=== PATIENT | male | born 1995 | race Two or more races ===

== ENCOUNTER 2019-03-25 17:31 | Emergency (ER) | payer OTHER ==
[~2019-03-25] VITALS: Ht 180.3 cm; Wt 101.3 kg
[2019-03-25] MEDS ORDERED: b/p med (17:38)
[2019-03-25] MEDS ORDERED: methylPREDNISolone INJ 125 MG/2 ML VIAL (J2930) IV ONE (18:15)
[2019-03-25] MEDS ORDERED: IPRATROPIUM 0.5MG/ALBUTEROL 2.5MG INH SOL UD 3ML (DUONEB)(J7620) NEB ONE (18:15)
[2019-03-25 18:37] LABS: BASO # 0.1 10^3/uL (0.0-0.2); BASO % 0.9 % (0.0-1.0); EOS # 1.5 10^3/uL (0.0-0.5); EOS % 10.5 % (0.0-3.0); HEMATOCRIT 50.2 % (42.0-52.0); HEMOGLOBIN 16.1 g/dl (13.5-17.5); LYMPH # 2.6 10^3/uL (1.5-5.0); LYMPH % 18.6 % (24.0-44.0); MEAN CORPUSCULAR HEMOGLOBIN 27.9 pg (27.0-33.0); MEAN CORPUSCULAR HGB CONC 32.1 g/dl (32.0-36.5); MEAN CORPUSCULAR VOLUME 86.9 fl (80.0-96.0); MONO # 1.2 10^3/uL (0.0-0.8); MONO % 8.3 % (0.0-5.0); NEUTROPHILS # 8.6 10^3/uL (1.5-8.5); NEUTROPHILS % 61.3 % (36.0-66.0); PLATELET COUNT, AUTOMATED 343 10^3/uL (150-450); RED BLOOD COUNT 5.78 10^6/uL (4.30-6.10)
--- NOTE | 2019-03-25 18:58 | REP ---
Two-view chest: 03/25/2019. Indication: Dyspnea. Comparison: None. Findings: The lungs are clear. There is no pleural effusion or pneumothorax. Cardiomediastinal silhouette is unremarkable. Impression: Clear lungs. Electronically Signed by Chon Simon DO 03/25/2019 06:50 P
[2019-03-25 19:00] LABS: BLOOD UREA NITROGEN 18 MG/DL (7-18); CALCIUM LEVEL 9.5 MG/DL (8.5-10.1); CARBON DIOXIDE LEVEL 30 MEQ/L (21-32); CHLORIDE LEVEL 103 MEQ/L (98-107); CREATININE FOR GFR 1.23 MG/DL (0.70-1.30); GLOMERULAR FILTRATION RATE > 60.0 (>60); GLUCOSE, FASTING 91 MG/DL (70-100); POTASSIUM SERUM 3.8 MEQ/L (3.5-5.1); SODIUM LEVEL 140 MEQ/L (136-145)
[2019-03-25 19:19] LABS: INFLUENZA A AMPLIFICATION NEGATIVE (NEGATIVE); INFLUENZA B AMPLIFICATION NEGATIVE (NEGATIVE)
[2019-03-25 19:43] VITALS: BP 160/77
[2019-03-25] MEDS ORDERED: PRED20TA PO (19:54)
[2019-03-25] MEDS ORDERED: ALBUTEROL 90 MCG/ACT 8GM HFA INHALER INH PRN (20:00)
--- NOTE | 2019-03-26 06:24 | ECGEPIP ---
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
== END 2019-03-25 20:59 | disposition home or self-care (01) ==
LOC: M ED 17:31
DX: J45.901 Unspecified asthma with (acute) exacerbation (principal); I10 Essential (primary) hypertension; R94.31 Abnormal electrocardiogram [ECG] [EKG]; Z88.0 Allergy status to penicillin
CPT/HCPCS: 71046; 80048; 85025; 87502; 87880; 93005; 94640; 96374; 99284; J2930

== ENCOUNTER → 2019-05-29 | Outpatient (CLI) | payer OTHER ==
[~2019-05-29] MED LIST: PRED20TA PO; b/p med
--- NOTE | 2019-05-29 15:00 | PFTRPT ---
Site: [facility], [address] [place] [address], [id number] ID: [id number] Name: ZURI CONWAY Visit Date: 05/29/2019 Second ID: [id number] Referring Doctor: Tony Irizarry PA-C Reviewing Doctor: Martin Grimm MD Automatic Operator: Nancy Medina Age: 24 : 1995 Sex: Male Race: Black Height: 71.00 Inches Weight: 220.00 Lbs BSA: 2.20 Order IDs: [id number] Requested Test(s): <RESP-PFT.DLCO> Diagnosis: SHORTNESS OF BREATH test meet the ATS standards for acceptability and repeatability. Pt was given four puffs of albuterol for postbronchodilator. Review Status: Not Reviewed Pre-Bronch Post-Bronch Pred Actual %Pred Actual %Chng SPIROMETRY FVC (L) 4.80 4.09 85 4.79 17 FEV1 (L) 4.05 1.79 44 2.56 43 FEV1/FVC (%) 85 44 51 53 22 FEF 25% (L/sec) 8.94 1.99 22 3.03 52 FEF 50% (L/sec) 6.07 0.83 13 1.97 138 FEF 75% (L/sec) 2.36 0.38 15 0.95 153 FEF 25-75% (L/sec) 4.48 0.64 14 1.67 161 FEF Max (L/sec) 10.09 2.59 25 4.91 89 FIVC (L) 2.58 4.81 86 FIF 50% (L/sec) 5.63 2.21 39 3.78 71 FIF Max (L/sec) 2.43 4.03 66 MVV (L/min) 188 45 23 Expiratory Time (sec) 12.21 12.15 Back Extrap Vol (L) 0.07 0.08 8 Time To FEFmax (sec) 0.180 0.097 -45 LUNG VOLUMES SVC (L) 5.50 4.90 89 IC (L) 3.63 3.66 100 ERV (L) 1.87 1.24 66 TGV (L) 3.45 4.24 123 RV (Pleth) (L) 1.58 3.00 189 TLC (Pleth) (L) 7.08 7.90 111 RV/TLC (Pleth) (%) 22 38 172 DIFFUSION DLCOunc (ml/min/mmHg) 36.83 31.06 84 DLCOcor (ml/min/mmHg) 36.83 31.14 84 DL/VA (ml/min/mmHg/L) 5.20 4.94 94 VA (L) 7.08 6.31 89 BHT (sec) 10.29 IVC (L) 4.75 TLC (SB) (L) 6.46 AIRWAYS RESISTANCE Raw (cmH2O/L/s) 1.45 5.46 376 Gaw (L/s/cmH2O) 1.03 0.19 18 sRaw (cmH2O*s) 4.76 20.55 431 sGaw (1/cmH2O*s) 0.20 0.05 26 BLOOD GASES Hgb (gm/dL) 14.5
== END ==
LOC: M CARPUL 14:04
PROVIDERS: ATTEND Physician Assistant
DX: J45.909 Unspecified asthma, uncomplicated (principal)

== ENCOUNTER 2019-07-22 10:18 | Emergency (ER) | payer OTHER ==
[~2019-07-22] VITALS: Ht 180.3 cm; Wt 97.7 kg
[2019-07-22] MEDS ORDERED: PROAAER10 INH (10:30)
[2019-07-22 11:22] LABS: HEMATOCRIT 46.5 % (42.0-52.0); HEMOGLOBIN 14.7 g/dl (13.5-17.5); MEAN CORPUSCULAR HEMOGLOBIN 27.1 pg (27.0-33.0); MEAN CORPUSCULAR HGB CONC 31.6 g/dl (32.0-36.5); MEAN CORPUSCULAR VOLUME 85.6 fl (80.0-96.0); PLATELET COUNT, AUTOMATED 288 10^3/uL (150-450); RED BLOOD COUNT 5.43 10^6/uL (4.30-6.10); WHITE BLOOD COUNT 8.7 10^3/uL (4.0-10.0)
[2019-07-22 11:34] LABS: AMPHETAMINES LEVEL URINE NEGATIVE (NEGATIVE); BARBITURATES URINE NEGATIVE (NEGATIVE); BENZODIAZEPINES URINE NEGATIVE (NEGATIVE); CANNABINOIDS URINE POSITIVE (NEGATIVE); COCAINE METABOLITE URINE POSITIVE (NEGATIVE); METHADONE URINE NEGATIVE (NEGATIVE); OPIATES URINE NEGATIVE (NEGATIVE); PHENCYCLIDINE URINE NEGATIVE (NEGATIVE)
[2019-07-22 11:52] LABS: ACETAMINOPHEN LEVEL < 2.0 UG/ML (10.0-30.0); ALBUMIN 4.3 GM/DL (3.2-5.2); ALT/SGPT 30 U/L (12-78); BILIRUBIN,DIRECT 0.2 MG/DL (0.0-0.2); BILIRUBIN,TOTAL 0.6 MG/DL (0.2-1.0); BLOOD UREA NITROGEN 17 MG/DL (7-18); CALCIUM LEVEL 9.2 MG/DL (8.5-10.1); CARBON DIOXIDE LEVEL 30 MEQ/L (21-32); CHLORIDE LEVEL 104 MEQ/L (98-107); CREATININE FOR GFR 1.15 MG/DL (0.70-1.30); ETHYL ALCOHOL (ETHANOL) < 0.003 % (0.000-0.010); GLOMERULAR FILTRATION RATE > 60.0 (>60); GLUCOSE, FASTING 91 MG/DL (70-100); SALICYLATE LEVEL < 1.7 MG/DL (5.0-30.0); SODIUM LEVEL 137 MEQ/L (136-145); TOTAL PROTEIN 8.7 GM/DL (6.4-8.2)
[2019-07-22] MEDS ORDERED: [UNRECOGNIZED DRUG - CODE] PO (20:39)
[2019-07-22] MEDS ORDERED: VITA500C13 PO (20:39)
--- NOTE | 2019-07-22 21:00 | ECGEPIP ---
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
[2019-07-23] MEDS ORDERED: ALBUTEROL 90 MCG/ACT 8GM HFA INHALER INH ONE (05:15)
[2019-07-23 06:44] VITALS: BP 145/78
== END 2019-07-23 06:49 ==
LOC: M ED 10:18
DX: R45.851 Suicidal ideations (principal); F32.9 Major depressive disorder, single episode, unspecified; I10 Essential (primary) hypertension; Z88.0 Allergy status to penicillin; F12.10 Cannabis abuse, uncomplicated; F14.10 Cocaine abuse, uncomplicated
CPT/HCPCS: 36415; 80048; 80076; 80307; 84443; 85027; 93005; 99284; G0480